=== PATIENT | female | born 1940 | race Caucasian/White ===

== ENCOUNTER 2019-09-08 11:01 | Outpatient (CLI) | payer MEDICARE, SELFPAY ==
[2019-09-08 11:15] VITALS: PULSE 82; O2SAT 87
[2019-09-08 11:20] VITALS: PULSE 86; O2SAT 90
[2019-09-08 11:25] VITALS: PULSE 99; O2SAT 90
[2019-09-08 11:35] VITALS: PULSE 80; O2SAT 91
--- NOTE | 2019-09-08 11:43 | HOMEO2EVAL ---
Home Oxygen Evaluation RC: Home Oxygen (O2) Evaluation Start: 09/08/19 11:36 Freq: Status: Active Protocol: RPE Activity Type Activity Date Activity User E-Sign Co-Sign Detail Recorded Client Recorded Date Recorded By Document 09/08/19 11:15 [email or web address] [id number] 09/08/19 11:43 DJO Document 09/08/19 11:20 [email or web address] [id number] 09/08/19 11:43 DJO Document 09/08/19 11:25 [email or web address] [email or web address] 09/08/19 11:43 DJO Document 09/08/19 11:35 [email or web address] [email or web address] 09/08/19 11:43 DJO 09/08/19 09/08/19 09/08/19 11:15 11:20 11:25 Home O2 Evaluation Test Phase Resting Resting Exercise Oxygen Delivery Room Air Nasal Cannula Nasal Cannula Oxygen Flow Rate (L/min) 1 1 Pulse Oximetry (90-100 %) 87 L 90 90 Pulse Rate (60-100 beats/min) 82 86 99 Activity Tolerance Excellent Ambulation Distance (feet) 500 Treatment Charges O2 Evaluation 09/08/19 11:35 Home O2 Evaluation Test Phase Resting Oxygen Delivery Nasal Cannula Oxygen Flow Rate (L/min) 1 Pulse Oximetry (90-100 %) 91 Pulse Rate (60-100 beats/min) 80 Activity Tolerance Ambulation Distance (feet) Treatment Charges
== END 2019-09-08 11:02 | disposition home or self-care (01) ==
PROVIDERS: PCP Internal Medicine; Visit Provider Nurse Practitioner Family
DX: R09.02 Hypoxemia (principal)
CPT/HCPCS: 94618

== ENCOUNTER → 2020-03-02 11:36 | Outpatient (CLI) | payer MEDICARE, SELFPAY ==
--- NOTE | ~2020-03-02 | XR_ITS ---
XR chest 2V 03/02/2020 12:39 Indication: Shortness of breath Procedure: 2 view chest Comparison: Comparison to multiple prior studies sequentially, with oldest reviewed study dated 03/26. Findings: Heart size normal. There are linear atelectasis/scarring of the lung bases. No edema, focal pneumonia, pleural effusion or pneumothorax. The lungs are hyperinflated which is consistent with, b ut not diagnostic of chronic obstructive pulmonary disease. Impression: 1: Bibasilar atelectasis/scarring. Reviewed, dictated and finalized at location A. Impression: 1: Bibasilar atelectasis/scarring.
== END ==
PROVIDERS: PCP Internal Medicine; Visit Provider Internal Medicine
DX: R06.02 Shortness of breath (principal); R91.8 Other nonspecific abnormal finding of lung field
CPT/HCPCS: 71046

== ENCOUNTER 2020-07-28 12:18 | Outpatient (CLI) | payer MEDICARE, SELFPAY ==
[2020-07-28 12:55] LABS: Basophils Percent Auto 0.5 % (0.2-1.2); Eosinophils Absolute Auto 0.2 K/mm3 (0-0.3); Eosinophils Percent Auto 2.1 % (0-4.4); Hematocrit 45.8 % (37.0-47.0); Hemoglobin 14.7 g/dL (12.0-15.0); Immature Granulocyte Absolute 0.02 K/mm3 (0.00-0.031); Immature Granulocyte Percent A 0.2 % (0-0.5); Lymphocytes Absolute Auto 2.21 K/mm3 (0.9-3.2); Lymphocytes Percent Auto 25.7 % (18.3-44.2); Mean Corpuscular HGB Conc 32.1 g/dl (32-36); Mean Corpuscular Hemoglobin 30.6 pg (26-34); Mean Corpuscular Volume 95.2 fl (80-100); Mean Platelet Volume 11.7 fl (7.4-10.4); Monocytes Absolute Auto 0.7 K/mm3 (0.1-0.6); Neutrophils Absolute Auto 5.5 K/mm3 (1.3-6.7); Neutrophils Percent Auto 63.5 % (45.5-73.1); Platelet Count Result 239 k/mm3 (150-375); Red Blood Count 4.81 M/mm3 (4.2-5.4); Red Cell Distribution Width 13.6 % (11.5-14.5); White Blood Count 8.6 K/mm3 (4.5-10.0)
--- NOTE | 2020-07-28 12:57 | ECG_ITS ---
Measurements Intervals [place] Rate: 71 P: [place]: 0 QRS: -58 QRSD: 138 T: 81 QT: 425 QTc: 463 Interpretive Statements SINUS RHYTHM BORDERLINE AV CONDUCTION DELAY RIGHT BUNDLE BRANCH BLOCK LEFT ANTERIOR FASCICULAR BLOCK ABNORMAL ECG Electronically Signed On 07-28-2020 13:11:50 CENTRAL OFFICE OPERATOR by Ever Shipley D.O.
[2020-07-28 13:03] LABS: Add Urine Microscopic? YES; Appearance Urine Clear (Clear); Bacteria Urine Trace /hpf; Bilirubin Urine Negative (Negative); Blood Urine Negative (Negative); Color Urine Yellow (Yellow); Glucose Urine UA Negative (Negative); Ketones Urine Negative (Negative); Leukocyte Esterase Ur Negative LEU/UL (NEGATIVE); Mucus Urine Heavy /lpf; Nitrate Urine Negative (Negative); Protein Urine 2+ mg/dL (Negative); RBC Urine 0-2 /hpf (0-2); Specific Grav Ur 1.029 (1.001-1.035); Squamous Epithelial Cell Urine Many /hpf (Few); Urobilinogen Urine Negative mg/dL (<2.0); WBC Urine 0-3 /hpf (0-3)
[2020-07-28 13:07] LABS: Alanine Aminotransferase 18 U/L (4-35); Albumin Level 4.4 g/dL (3.5-5.1); Alkaline Phosphatase 94 U/L (38-126); Anion Gap 8 mmol/L (8-16); Aspartate Amino Transferase 28 U/L (14-36); Bilirubin,Total 0.8 mg/dL (0.2-1.3); Blood Urea Nitrogen 20 mg/dL (7-17); Carbon Dioxide 25 mmol/L (22-30); Chloride 109 mmol/L (98-107); Cholesterol 110 mg/dL (0-200); Estimated Glomerular Filt Rate 60; Glucose 101 mg/dL (65-105); HDL Direct 51 mg/dL; Sodium 142 mmol/L (137-145); Triglycerides 115 mg/dL (<150)
[2020-07-28 13:11] LABS: Hemoglobin A1C 5.6 % (<5.7)
[2020-07-28 13:21] LABS: LDL Cholesterol Direct 37 mg/dL
[2020-07-28 13:53] LABS: Creatinine Urine 266.6 mg/dL
[2020-07-28 13:54] LABS: Vitamin D 25 Hydroxy < 12.8 ng/mL
[2020-07-28 14:20] LABS: MALB Creatinine Ratio 120.7 mg/g (0-30); Microalbumin Urine Random 321.9 mg/L (0-16.7)
== END 2020-07-28 12:19 | disposition home or self-care (01) ==
PROVIDERS: PCP Internal Medicine; Visit Provider Internal Medicine
DX: E11.65 Type 2 diabetes mellitus with hyperglycemia (principal); E55.9 Vitamin D deficiency, unspecified; E78.2 Mixed hyperlipidemia; G25.81 Restless legs syndrome; I10 Essential (primary) hypertension; I35.0 Nonrheumatic aortic (valve) stenosis; J44.9 Chronic obstructive pulmonary disease, unspecified; K21.9 Gastro-esophageal reflux disease without esophagitis; R42 Dizziness and giddiness; I45.9 Conduction disorder, unspecified; I45.10 Unspecified right bundle-branch block; I44.4 Left anterior fascicular block
CPT/HCPCS: 36415; 80053; 80061; 81001; 82043; 82306; 82607; 82746; 83036; 84443; 85025; 93005

== ENCOUNTER 2020-08-23 13:39 | Outpatient (CLI) | payer MEDICARE, SELFPAY ==
--- NOTE | 2020-08-23 13:47 | ECHO_ITS ---
Patient Info Name: Nguyen Lunsford Age: 79 years : 1940 Gender: Female Ht: 62 in Wt: 173 lbs BSA: 1.88 m2 Exam Date: 08/23/2020 2:02 PM Exam Location: [facility] Patient Status: Outpatient Admit Date: 08/23/2020 Staff Ordering Physician: Filiberto Ferrari MD Inspector Cold Working: Mariah Warner RDCS Attending Provider: Filiberto Ferrari MD Exam Type: CA echo doppler color flow Study Info Indications I10 - Essential (primary) hypertension Complete two-dimensional, color flow and Doppler transthoracic echocardiogram is performed. Summary 1. Complete two-dimensional, color flow and Doppler transthoracic echocardiogram is performed. 2. Left ventricular chamber dimension is normal. 3. Left ventricular systolic function is normal, estimated at 60-65%. 4. The left ventricular diastolic function is grade I diastolic dysfunction. 5. E/e' 31 is elevated. 6. Left atrial chamber dimension is mildly enlarged. 7. There is moderate aortic valve sclerosis. 8. The mitral valve has moderately calcified annulus. 9. There is mild mitral valve regurgitation. 10. There is trace tricuspid valve regurgitation. 11. No pulmonary hypertension, estimated pulmonary arterial systolic pressure is 39 mmHg. 12. There is trace pulmonic regurgitation. Left Ventricle E/e' 31 is elevated. Left ventricular chamber dimension is normal. Left ventricular systolic function is normal, estimated at 60-65%. The left ventricular diastolic function is grade I diastolic dysfunction. Right Ventricle Right ventricular chamber dimension is normal. Right ventricular systolic function is normal. Left Atria Left atrial chamber dimension is mildly enlarged. Right Atria Right atrial chamber dimension is normal. Aortic Valve The aortic valve is trileaflet. There is moderate aortic valve sclerosis. There is no aortic valve stenosis. There is no aortic valve regurgitation. Pulmonic Valve There is trace pulmonic regurgitation. Mitral Valve The mitral valve has moderately calcified annulus. There is no mitral valve stenosis. There is mild mitral valve regurgitation. Tricuspid Valve There is trace tricuspid valve regurgitation. No pulmonary hypertension, estimated pulmonary arterial systolic pressure is 39 mmHg. Pericardium/Pleural There is no pericardial effusion. Inferior Vena Cava Normal inferior vena cava with >50% collapse upon inspiration consistent with normal right atrial pressure, 5 mmHg. Aorta The aortic root size at the sinus of Valsalva is normal. Left Ventricular Outflow Tract Name Value Normal LVOT 2D LVOT Diameter 1.9 cm LVOT Doppler LVOT Peak Gradient 10 mmHg LVOT Mean Gradient 5 mmHg LVOT VTI 37 cm LVOT VTI/AV VTI Ratio 0.9 LVOT Stroke Volume 109 ml LVOT CO 17.5 l/min LVOT CI 9.3 l/min/m2 Pulmonic Valve Name
== END 2020-08-23 13:40 | disposition home or self-care (01) ==
PROVIDERS: PCP Internal Medicine; Visit Provider Internal Medicine
DX: R06.02 Shortness of breath (principal); I10 Essential (primary) hypertension; I35.0 Nonrheumatic aortic (valve) stenosis; I34.0 Nonrheumatic mitral (valve) insufficiency; I36.1 Nonrheumatic tricuspid (valve) insufficiency
CPT/HCPCS: 93306

== ENCOUNTER 2020-08-27 11:59 | Outpatient (CLI) | payer MEDICARE, SELFPAY ==
--- NOTE | 2020-08-27 12:20 | ECG_ITS ---
Measurements Intervals [place] Rate: 84 P: 125 [place]: 232 QRS: -59 QRSD: 147 T: 76 QT: 427 QTc: 507 Interpretive Statements SINUS RHYTHM WITH FIRST DEGREE AV BLOCK FREQUENT ATRIAL PREMATURE COMPLEXES RIGHT BUNDLE BRANCH BLOCK LEFT ANTERIOR FASCICULAR BLOCK VOLTAGE CRITERIA FOR LVH BASELINE ARTIFACT- I, II, III, AVR, AVL ABNORMAL ECG Electronically Signed On 08-27-2020 12:52:17 MAINTENANCE TECHNICIAN 2ND SHIFT by Ever Shipley D.O.
== END 2020-08-27 12:00 | disposition home or self-care (01) ==
PROVIDERS: PCP Internal Medicine; Visit Provider Internal Medicine
DX: I45.10 Unspecified right bundle-branch block (principal); I44.0 Atrioventricular block, first degree; I44.4 Left anterior fascicular block
CPT/HCPCS: 93005

== ENCOUNTER → 2020-12-03 11:38 | Outpatient (CLI) | payer MEDICARE, SELFPAY ==
--- NOTE | ~2020-12-03 | XR_ITS ---
EXAMINATION: XR chest 2V 12/03/2020 11:54 INDICATION: Dyspnea. Wheezing. Asthma. COPD. PROCEDURE: 2 view chest COMPARISON: Comparison to multiple prior studies sequentially, with oldest reviewed study dated 11/14. FINDINGS: The lungs are clear. There is chronic left basilar atelectasis/scarring. The cardiomediasti nal silhouette is within normal limits. There are no pleural effusions. There is no pneumothorax berg spected. There is atherosclerosis of the aorta. The lungs are hyperinflated which is consistent with , but not diagnostic of chronic obstructive pulmonary disease. IMPRESSION: 1: NO ACUTE CARDIOPULMONARY DISEASE. Reviewed, dictated and finalized at location B.
== END ==
PROVIDERS: PCP Internal Medicine; Visit Provider Internal Medicine
DX: J44.1 Chronic obstructive pulmonary disease with (acute) exacerbation (principal)
CPT/HCPCS: 71046

== ENCOUNTER 2021-09-02 08:05 | Outpatient (CLI) | payer MEDICARE, MEDICAID, SELFPAY ==
[2021-09-02 08:30] VITALS: PULSE 75; O2SAT 97
[2021-09-02 08:35] VITALS: PULSE 111; O2SAT 95
[2021-09-02 08:40] VITALS: PULSE 80; O2SAT 96
--- NOTE | 2021-09-02 16:34 | HOMEO2EVAL ---
Evaluation was performed at [facility] Home Oxygen Evaluation RC: Home Oxygen (O2) Evaluation Start: 09/02/21 16:32 Freq: Status: Active Protocol: RPE Activity Type Activity Date Activity User E-Sign Co-Sign Detail Recorded Client Recorded Date Recorded By Document 09/02/21 08:30 ROXANNE [id number] 09/02/21 16:34 ROXANNE Document 09/02/21 08:35 ROXANNE [id number] 09/02/21 16:34 ROXANNE Document 09/02/21 08:40 ROXANNE [id number] 09/02/21 16:34 ROXANNE 09/02/21 09/02/21 09/02/21 08:30 08:35 08:40 Home O2 Evaluation Test Phase Resting Exercise Resting Oxygen Delivery Room Air Room Air Room Air Pulse Oximetry (90-100 %) 97 95 96 Pulse Rate (60-100 beats/min) 75 111 H 80 Home Oxygen Evaluation Comments NO HOME O2 NEEDED AT THIS TIME Treatment Charges O2 Evaluation - Outpatient
--- NOTE | 2021-09-02 16:34 | PCRCNOTE ---
HOME O2 EVAL FAXED TO OFFICE STAFF
== END 2021-09-02 08:06 | disposition home or self-care (01) ==
PROVIDERS: PCP Internal Medicine; Visit Provider Internal Medicine Critical Care Medicine
DX: R09.02 Hypoxemia (principal)
CPT/HCPCS: 94618

== ENCOUNTER 2022-06-09 14:15 | Outpatient (CLI) | payer MEDICARE, MEDICAID, SELFPAY ==
--- NOTE | ~2022-06-09 | DEXA_ITS ---
Bone Density Report Name: ANITA JACOME Age: 81 Sex: Female Ethnicity: White Date of : 1940 Indication: postmenopausal; screening for osteoporosis; height loss; asthma or emphysema; hysterectomy; rheumatoid arthritis; Referring Provider: PHUC TERRY Study: Bone densitometry was performed. Exam Date: June 09, 2022 Accession number: [id number] Bone Density: Region BMD T-score Z-score Classification Total Forearm (Left) 0.348 -4.3 -1.0 1/3 Forearm (Left) 0.382 -5.2 -1.8 UD Forearm (Left) 0.296 -2.5 -0.1 World Health Organization criteria for BMD impression classify patients as: Normal (T-score at or above -1.0), Osteopenia (T-score between -1.0 and -2.5), or Osteoporosis (T-score at or below -2.5). Clinical Information Provided by Patient: Has rheumatoid arthritis Is being treated for osteoporosis Has used the following medications: Actonel (i.e. risedronate), Calcium Has the following medical conditions: Asthma or Emphysema, Hysterectomy Patient maximum height was 62 Menopause Age: 29 Onset of menses at age 10 Number of children 2 Impression: The patient has osteoporosis, based on the Left Third Radius T-score. Discussion: It is important to ask patients whether they are taking their medications and to encourage continued and appropriate compliance with their osteoporosis therapies to reduce fracture risk. It is also important to review their risk factors and encourage appropriate calcium and vitamin D intakes, exercise, fall prevention and other lifestyle measures. Follow-Up: Consider a repeat BMD and Vertebral Fracture Assessment (VFA) exam in 2 years or sooner if medically necessary, to reassess this patient's status. Reported by: KARIME on 06/09/2022 2:44:00 PM. Reviewed, dictated and finalized at location AJac CACERES
== END 2022-06-09 14:16 | disposition home or self-care (01) ==
LOC: ANHIMG 14:16
PROVIDERS: PCP Internal Medicine; Visit Provider Internal Medicine
DX: M81.0 Age-related osteoporosis without current pathological fracture (principal)
CPT/HCPCS: 77081

== ENCOUNTER 2023-03-24 09:30 | Outpatient (CLI) | payer MEDICARE, MEDICAID, SELFPAY ==
--- NOTE | ~2023-03-24 | MR_ITS ---
EXAMINATION: MRA brain wo con DATE: 03/24/2023 10:36 INDICATION: Transient cerebral ischemic attack, unspecified. TECHNIQUE: Magnetic resonance angiography (MRA) of the brain was performed without intravenous contra st with T1-weighted SPGR by the 3D [id number] technique. Maximum intensity projection 3D-reconstr uctions were obtained. COMPARISON: None. FINDINGS: Left vertebral artery is dominant. There is no significant stenosis of basilar artery or the posterio r cerebral arteries. There is no significant stenosis of the intracranial internal carotid arteries o r anterior or middle cerebral arteries. Anterior communicating artery is normal. There is no aneurysm . IMPRESSION: 1. Normal MRA. Reviewed, dictated and finalized at location E. IMPRESSION: 1. Normal MRA.
== END 2023-03-24 09:31 | disposition home or self-care (01) ==
PROVIDERS: PCP Family Medicine; Visit Provider Nurse Practitioner Family
DX: G45.9 Transient cerebral ischemic attack, unspecified (principal); H54.7 Unspecified visual loss
CPT/HCPCS: 70544

== ENCOUNTER 2023-05-10 07:38 | Outpatient (CLI) | payer MEDICARE, MEDICAID, SELFPAY ==
[2023-05-10 08:00] VITALS: PULSE 90; O2SAT 98
[2023-05-10 08:05] VITALS: PULSE 128; O2SAT 94
[2023-05-10 08:15] VITALS: PULSE 94; O2SAT 98
--- NOTE | 2023-05-10 08:24 | HOMEO2EVAL ---
Evaluation was performed at [facility] Home Oxygen Evaluation RC: Home Oxygen (O2) Evaluation Start: 05/10/23 08:21 Freq: Status: Active Protocol: RPE Activity Type Activity Date Activity User E-sign Co-sign Detail Recorded Client Recorded Date Recorded By Document 05/10/23 08:00 DJO [id number] 05/10/23 08:24 DJO Document 05/10/23 08:05 DJO [id number] 05/10/23 08:24 DJO Document 05/10/23 08:15 [email or web address] [id number] 05/10/23 08:24 DJO 05/10/23 05/10/23 05/10/23 08:00 08:05 08:15 Home O2 Evaluation [Oxygen] -Test Phase Resting Exercise Resting -Oxygen Delivery Room Air Room Air Room Air [Pulse Oximetry] -Pulse Oximetry (90-100 %) 98 94 98 [Pulse Rate] -Pulse Rate (60-100 beats/min) 90 128 H 94 [Evaluation] -Activity Tolerance Good [Exercise] -Ambulation Distance (feet) 500 -Ambulation Distance (meters) 152.39 [Charges] -Treatment Charges O2 Evaluation - Outpatient
== END 2023-05-10 07:39 | disposition home or self-care (01) ==
LOC: ANHPFT 07:39
PROVIDERS: PCP Nurse Practitioner; Visit Provider Physician Assistant
DX: J44.9 Chronic obstructive pulmonary disease, unspecified (principal)
CPT/HCPCS: 94618

== ENCOUNTER 2023-06-06 09:26 | Inpatient (IN) | payer MEDICARE, MEDICAID, SELFPAY ==
[2023-06-06] VITALS (11 sets, daily range): BP systolic 113–164; BP diastolic 52–77; PULSE 59–94; RESP 16–23; TEMP 36.2–37; O2SAT 91–99; BMI 32.0
--- NOTE | ~2023-06-06 | US_ITS ---
EXAMINATION: US venous doppler [facility] DATE: 06/08/2023 14:35 INDICATION: Bilateral lower limb swelling TECHNIQUE: Otto scale images without and with compression and Doppler images of the bilateral lower e xtremity veins were obtained. COMPARISON: 02/20/2008 FINDINGS: The right common femoral vein, profunda femoral vein, femoral vein, popliteal vein, peroneal trunk, p osterior tibial veins, and greater saphenous vein are patent. The left common femoral vein, profunda femoral vein, femoral vein, popliteal vein, peroneal trunk, po sterior tibial veins, and greater saphenous vein are patent. IMPRESSION: 1. Patent bilateral lower extremity veins. No evidence of deep venous thrombosis. Reviewed, dictated and finalized at location B. GER LAW IMPRESSION: 1. Patent bilateral lower extremity veins. No evidence of deep venous thrombosi s.
--- NOTE | ~2023-06-06 | NM_ITS ---
EXAMINATION: NM lung vent and perfusion DATE: 06/06/2023 16:08 INDICATION: Shortness of breath. TECHNIQUE: 7.7 mCi Xenon-133 was administered for ventilation images. 5.2 mCi Tc-99m MAA was administ ered intravenously for perfusion images. Scintigraphic images of the chest were obtained. COMPARISON: Chest 2 views 06/06/2023, CT abdomen and pelvis 06/06/2023 FINDINGS: Single breath ventilation images show moderate sized and large defects in left lower lobe. Washout im ages demonstrate diffuse retention bilaterally. Perfusion images show matched moderate sized and larg e defects in left lower lobe. There are small matched defects in right lower lobe. IMPRESSION: 1. Intermediate probability for pulmonary embolism. Reviewed, dictated and finalized at location A. OMER MANAGER
--- NOTE | ~2023-06-06 | XR_ITS ---
EXAMINATION: XR chest 2V DATE: 06/06/2023 11:31 INDICATION: Shortness of breath TECHNIQUE: PA and lateral views of the chest are obtained. COMPARISON: 12/04/2019 FINDINGS: There are airspace opacities of the left lung base. There is a small left pleural effusion. No pneumothorax is identified. The cardiomediastinal silhouette is normal. There is moderate thoraci c spondylosis. Moderate osteoarthritis is noted in the shoulders. IMPRESSION: 1. Left basilar airspace opacity, consistent with atelectasis versus pneumonia. 2. Small left pleural effusion. Reviewed, dictated and finalized at location B. RETE PIPE PLANT SUPERVISOR
--- NOTE | ~2023-06-06 | US_ITS ---
EXAMINATION: US venous doppler UE DATE: 06/08/2023 14:34 INDICATION: Bilateral TECHNIQUE: Grayscale ultrasound images without and with compression and Doppler ultrasound images of the bilateral upper extremity veins were obtained. COMPARISON: None. FINDINGS: The right internal jugular vein, subclavian vein, axillary vein, brachial veins, basilic vein, cephal ic vein, radial vein, and ulnar vein are patent. The left internal jugular vein, subclavian vein, axillary vein, brachial veins, basilic vein, cephali c vein, radial vein, and ulnar vein are patent. IMPRESSION: 1. No evidence of deep venous thrombosis. Reviewed, dictated and finalized at location B. [facility]
--- NOTE | ~2023-06-06 | CT_ITS ---
Non-contrast CT scan of the Abdomen and Pelvis Clinical indication: Abdominal pain Technique: 2.5 mm axial scans were obtained through the abdomen and pelvis without intravenous or or al contrast. Dose reduction technique was used on this scan by utilizing automated exposure control a nd iterative reconstruction technique. The dose-length product (DLP) was 702.57 mGy-cm. Findings: Images through the lung bases reveal minimal left pleural fluid, with probable bibasilar a telectasis or scarring. There is cortical scarring in the right kidney. Possible small right renal stone versus vascular calc ification. No ureteral stone or hydronephrosis on either side. No left renal stone. The liver, spleen, pancreas, and adrenals appear normal. Cholecystectomy clips are present. There are atherosclerotic calcifications of the aorta. There is no evidence of bowel obstruction. Moderate fat-containing umbilical hernia present. Images through the pelvis are degraded by streak artifact from bilateral hip arthroplasty. There is n o evidence of ascites or lymphadenopathy. Urinary bladder grossly unremarkable. No definite pelvic ma ss seen. Impression: Moderate fat-containing umbilical hernia. Possible small nonobstructing ureteral stone versus vascular calcification. Minimal left pleural effusion with bibasilar scarring or atelectasis. Reviewed, dictated and finalized at [facility]. COMMUNICATIONS ADMINISTRATOR Impression: Moderate fat-containing umbilical hernia. Possible small nonobstructing ureteral stone versus vascular calcification. Minimal left pleural effusion with bibasilar scarring or atelectasis.
--- NOTE | 2023-06-06 09:54 | ECG_ITS ---
Measurements Intervals [place] Rate: 115 P: [place]: 0 QRS: -50 QRSD: 119 T: 68 QT: 320 QTc: 444 Interpretive Statements ATRIAL FIBRILLATION WITH RAPID VENTRICULAR RESPONSE WITH ABERRANT CONDUCTION OR VENTRICULAR PREMATURE COMPLEXES PATTERN CONSISTENT WITH PULMONARY DISEASE RIGHT BUNDLE BRANCH BLOCK [120+ ms QRS DURATION, UPRIGHT V1, 40+ ms S IN I/aVL/V4/V5/V6] VOLTAGE CRITERIA FOR LVH [MEETS CRITERIA IN ONE OF: R(aVL), S(V1), R(V5), R(V5/V6)+S(V1)] INFERIOR MYOCARDIAL INFARCTION , PROBABLY OLD [40+ ms Q WAVE AND/OR ST/T ABNORMALITY IN II/aVF] ARTIFACT LIMITS INTERPRETATION ABNORMAL ECG COMPARED TO ECG 08/27/2020 12:35:14 ATRIAL FIBRILLATION NOW PRESENT ABERRANT CONDUCTION OF SUPRAVENTRICULAR BEAT(S) NOW PRESENT MYOCARDIAL INFARCT FINDING NOW PRESENT Electronically Signed On 06-06-2023 10:41:32 OFFSET PLATE PREPARATION SUPERVISOR by Kushal Little M.D.
--- NOTE | 2023-06-06 10:19 | ED.ABDPAIN ---
HPI - Abdominal Pain General Chief Complaint: Abdominal Pain <ZANE Ortiz Last Filed: 06/06/23 12:33> Stated Complaint: ABD PAIN <ZANE Ortiz Last Filed: 06/06/23 12:33> Time Seen by Provider: 06/06/23 09:37 <ZANE Ortiz Last Filed: 06/06/23 12:33> Source: patient <ZANE Ortiz Last Filed: 06/06/23 12:33> Mode of arrival: ambulatory <ZANE Ortiz Last Filed: 06/06/23 12:33> Limitations: no limitations <ZANE Ortiz Last Filed: 06/06/23 12:33> History of Present Illness HPI narrative: This is a 82 year old female that presents to the ER for left sided abdominal pain. Reports radiation to her back. Pain is worse with movement and relieved with rest. She has not taken any pain medication today. Reports associated nausea. Reports shortness of breath, but took her inhaler with relief. Denies fever, chest pain, vomiting, hematuria or dysuria. <ZANE Ortiz Last Filed: 06/06/23 12:33> Related Data Home Medications: Home Medications Medication Instructions Recorded Confirmed hydrocodone 5 mg-acetaminophen 325 1 tablet PO Q8H PRN Pain 05/20/19 06/06/23 mg tablet diltiazem HCl 120 mg 120 mg PO ONCE 09/22/22 06/06/23 capsule,extended release 12 hr <ZANE Ortiz Last Filed: 06/06/23 12:33> Allergies/Adverse Reactions: Allergies Allergy/AdvReac Type Severity Reaction Status Date / Time iodine Allergy Severe SYNCOPE Verified 05/02/23 10:13 lisinopril Allergy Severe Anaphylactic Verified 05/02/23 10:13 Shock JOHANA Inhibitors Allergy Mild Hives Verified 05/02/23 10:13 moxifloxacin Allergy Mild Hives Verified 06/06/23 10:26 Contrast Media Allergy Mild Syncope Uncoded 03/12/23 10:04 <ZANE Ortiz Last Filed: 06/06/23 12:33> Review of Systems Review of Systems: CONSTITUTIONAL: Denies fever CARDIOVASCULAR: Denies chest pain, or edema. RESPIRATORY: Reports dyspnea. Denies cough GASTROINTESTINAL: Reports abdominal pain, nausea. Denies vomiting, or diarrhea. GENITOURINARY: Denies dysuria or hematuria. <Aliya Singleton PA-C - Last Filed: 06/06/23 12:33> All systems reviewed & are unremarkable except as noted in HPI and below <Aliya Singleton PA-C - Last Filed: 06/06/23 12:33> [facility] Past Medical History Medical History: Medical History (Updated 06/06/23 @ 12:26 by Aliya Singleton PA-C) Aortic valve stenosis Cataract Chronic obstructive pulmonary disease Chronic pain syndrome ABREU (dyspnea on exertion) Dyslipidemia Essential hypertension Exercise hypoxemia GERD (gastroesophageal reflux disease) Hyperlipidemia, unspecified Osteoarthritis involving multiple joints on both sides of body Restless leg (03/10/19) Rheumatoid arthritis Type 2 diabetes mellitus with hyperglycemia <Aliya Singleton PA-C - Last Filed: 06/06/23 12:33> Surgical History Surgical History: Surgical History History of cholecystectomy History of hip replacement <Aliya Singleton PA-C - Last Filed: 06/06/23 12:33> Family History Family History: Family History Mother Carcinoma of colon Family history of malignant neoplasm of bone Family history of lymphoma Patient's mother is in good health Family history of rheumatoid arthritis Other Diabetes mellitus Family history of cardiovascular disease Family history of malignant neoplasm Family history of malignant neoplasm of gastrointestinal tract <Aliya Singleton PA-C - Last Filed: 06/06/23 12:33> Social History Social History: Social History Smoking status: Never smoker Second hand tobacco smoke exposure: Yes Alcohol intake: never Substance use: never Substance use type: does not use Lack of Transportation: No Lack of Food: Never Jim
[2023-06-06 10:20] LABS: Basophils Absolute Auto 0.1 K/mm3 (0.0-0.1); Basophils Percent Auto 0.4 % (0.2-1.2); Eosinophils Absolute Auto 0.1 K/mm3 (0-0.3); Eosinophils Percent Auto 0.5 % (0-4.4); Hematocrit 42.2 % (37.0-47.0); Hemoglobin 13.3 g/dL (12.0-15.0); Immature Granulocyte Absolute 0.02 K/mm3 (0.00-0.031); Immature Granulocyte Percent A 0.2 % (0-0.5); Lymphocytes Absolute Auto 2.47 K/mm3 (0.9-3.2); Lymphocytes Percent Auto 20.9 % (18.3-44.2); Mean Corpuscular HGB Conc 31.5 g/dl (32-36); Mean Corpuscular Hemoglobin 30.2 pg (26-34); Mean Corpuscular Volume 95.9 fl (80-100); Monocytes Absolute Auto 1.1 K/mm3 (0.1-0.6); Monocytes Percent Auto 9.4 % (2.6-8.5); Neutrophils Absolute Auto 8.1 K/mm3 (1.3-6.7); Neutrophils Percent Auto 68.6 % (45.5-73.1); Platelet Count Result 305 k/mm3 (150-375); Red Cell Distribution Width 14.6 % (11.5-14.5); White Blood Count 11.8 K/mm3 (4.5-10.0)
[2023-06-06] MEDS: ONDANSETRON INJ 4 MG/2 ML VIAL IV PUSH (10:30)
[2023-06-06] MEDS: MORPHINE SULFATE (*CRX) 4 MG/ML INJ IV PUSH (10:30)
[2023-06-06 10:53] LABS: Alanine Aminotransferase 16 U/L (6-35); Alkaline Phosphatase 74 U/L (38-126); Anion Gap 9 mmol/L (8-16); Aspartate Amino Transferase 28 U/L (14-36); Bilirubin,Total 1.4 mg/dL (0.2-1.3); Blood Urea Nitrogen 14 mg/dL (7-17); Calcium 8.8 mg/dL (8.4-10.2); Carbon Dioxide 26 mmol/L (22-30); Chloride 104 mmol/L (98-107); Estimated CRCL calculation 45 ml/min; Estimated Glomerular Filt Rate > 60; Glucose 116 mg/dL (65-110); Lipase 55 U/L (23-300); Potassium 3.8 mmol/L (3.4-5.0); Sodium 139 mmol/L (137-145)
[2023-06-06] MEDS: dilTIAZem HCL CD 120 MG CAP.24HR PO (10:55)
[2023-06-06 11:04] LABS: Troponin I < 0.012 ng/mL (0.000-0.034)
[2023-06-06 11:35] LABS: NT Pro B Type Natriuretic Pept 1750 pg/mL (19.9-100)
[2023-06-06 12:14] LABS: Appearance Urine Cloudy (Clear); Bacteria Urine None Seen /hpf; Bilirubin Urine 2+ (Negative); Blood Urine Negative (Negative); Color Urine Dark Yellow (Yellow); Glucose Urine UA Negative (Negative); Ketones Urine Trace mg/dL (Negative); Leukocyte Esterase Ur Trace LEU/UL (Negative); Mucus Urine Present /lpf; Need Manual Microscopic Reviewed; Nitrate Urine Negative (Negative); Protein Urine 3+ mg/dL (Negative); RBC Urine 0-2 /hpf (0-2); Squamous Epithelial Cell Urine Few /hpf (Few); WBC Urine 0-5 /hpf
[2023-06-06 12:19] LABS: Add Urine Microscopic? YES
--- NOTE | 2023-06-06 12:21 | ECG_ITS ---
Measurements Intervals [place] Rate: 116 P: [place]: 0 QRS: -54 QRSD: 145 T: 97 QT: 321 QTc: 448 Interpretive Statements ATRIAL FIBRILLATION WITH RAPID VENTRICULAR RESPONSE RIGHT BUNDLE BRANCH BLOCK [120+ ms QRS DURATION, UPRIGHT V1, 40+ ms S IN I/aVL/V4/V5/V6] LEFT ANTERIOR FASCICULAR BLOCK [QRS AXIS <= -45, QR IN I, RS IN II] VOLTAGE CRITERIA FOR LVH [MEETS CRITERIA IN ONE OF: R(aVL), S(V1), R(V5), R(V5/V6)+S(V1)] POSSIBLE SEPTAL MYOCARDIAL INFARCTION , OF INDETERMINATE AGE [30 ms Q WAVE IN V1/V2] MODERATE T-WAVE ABNORMALITY, CONSIDER LATERAL ISCHEMIA [-0.1+ mV T WAVE IN I/aVL/V5/V6] ABNORMAL ECG COMPARED TO ECG 06/06/2023 09:58:07 LEFT ANTERIOR FASCICULAR BLOCK NOW PRESENT Electronically Signed On 06-06-2023 16:17:39 OPTIMIZATION ANALYST by Kushal Little M.D.
--- NOTE | 2023-06-06 12:36 | ECG_ITS ---
Measurements Intervals [place] Rate: 78 P: 14 [place]: 194 QRS: -52 QRSD: 138 T: 65 QT: 420 QTc: 480 Interpretive Statements SINUS RHYTHM WITH OCCASIONAL SUPRAVENTRICULAR PREMATURE COMPLEXES POSSIBLE LEFT ATRIAL ENLARGEMENT [-0.1mV P WAVE IN V1/V2] RIGHT BUNDLE BRANCH BLOCK [120+ ms QRS DURATION, UPRIGHT V1, 40+ ms S IN I/aVL/V4/V5/V6] LEFT ANTERIOR FASCICULAR BLOCK [QRS AXIS <= -45, QR IN I, RS IN II] POSSIBLE LEFT VENTRICULAR HYPERTROPHY [VOLTAGE CRITERIA PLUS LAE OR QRS WIDENING] POSSIBLE SEPTAL MYOCARDIAL INFARCTION , PROBABLY OLD [30 ms Q WAVE IN V1/V2] ABNORMAL ECG COMPARED TO ECG 06/06/2023 10:02:43 SINUS RHYTHM NOW PRESENT Electronically Signed On 06-06-2023 16:18:59 FINANCE PROFESSIONAL by Kushal Little M.D.
[2023-06-06] MEDS: HYDROcodone/acetaminophen (*CRX) 5-325 MG TABLET 1 TAB PO (13:05)
[2023-06-06] MEDS: AZITHROMYCIN 500 MG/NS 250 ML 500 MG/250 ML BAG 250 MG IVPB (13:07)
[2023-06-06 13:18] LABS: D Dimer 3.28 ug/mL (<0.48)
[2023-06-06 13:28] LABS: Influenza A QL RT-PCR Negative (Negative); Influenza B QL RT-PCR Negative (Negative); SARS-CoV-2 RNA PCR Negative (Negative)
[2023-06-06 14:05] LABS: Troponin I 0.013 ng/mL (0.000-0.034)
--- NOTE | 2023-06-06 15:30 | ADMGEN ---
This patient, Nguyen Lunsford, was admitted to [facility] Surg Room 312-01. Patient/family oriented to hospital policies and general routines including ID bracelet, bed and alarms, visiting hours, pain management, procedures, bathroom and other care routines, personal items, smoking policy, room service/diet, and visiting hours. Information on how to activate the Rapid Response Team has been discussed. Patient/Family are encouraged to report perceived risks to care and to ask questions if they do not understand what they are told or what they should do.
--- NOTE | 2023-06-06 15:40 | PC.NURSE ---
report from Timur PARIKH in the ER at 1430, patient arrived at 1500 to 312 by wheelchair. denies pain, is stable, admission complete.
[2023-06-06] MEDS: MORPHINE SULFATE (*CRX) 2 MG/ML INJ IV PUSH (18:20)
--- NOTE | 2023-06-06 20:07 | PM.IMHP ---
H&P: HPI History of Present Illness Date/Time: 06/06/23 20:07 Chief Complaint: Abdominal Pain, N/V Narrative: 82 y/o F presents here with abdominal pain and N/V with PMH of take, aortic valve stenosis, COPD, dyslipidemia, HTN, GERD, osteoarthritis, RLS, and DM2. Patient reports diffuse abdominal pain and nausea vomiting that started on Sunday. States the abdominal pain is currently suprapubic radiating into her left flank and groin area. No associated diarrhea, palpitations, chest pain, diaphoresis, fever, or chills. Currently feels flushed and mildly short of breath. Describes her shortness of breath as similar to her previous asthma exacerbations and has chronically worsened with exertion, states she can hear herself wheeze occasionally. Also reports frequent N/V r/t to her hiatal hernia, takes Zofran for this at home. ED workup revealed mild elevation in white count at 11.8, elevated D-dimer at 3.28, BNP 1750, UA equivocal. CXR showed left basilar opacity, consistent with atelectasis versus pneumonia and a small left pleural effusion. CT of abdomen pelvis showed moderate fat containing umbilical hernia, possible small nonobstructing ureteral stone versus vascular calcification of the right side. No ureteral stone or hydronephrosis bilaterally. As well as minimal left pleural effusion with bibasilar scarring or atelectasis. No pneumonia to lung bases. EKG showed new AFib RVR. Given PO diltiazem with resolution of Afib RVR. Review of Systems Review of Systems: All systems reviewed & are unremarkable except as noted in HPI and below PMFSH Past Medical History Medical History Aortic valve stenosis Cataract Chronic obstructive pulmonary disease Chronic pain syndrome ABREU (dyspnea on exertion) Dyslipidemia Essential hypertension Exercise hypoxemia GERD (gastroesophageal reflux disease) Hyperlipidemia, unspecified Kidney stones Osteoarthritis involving multiple joints on both sides of body Restless leg (03/10/19) Rheumatoid arthritis Type 2 diabetes mellitus with hyperglycemia Surgical History Surgical History History of cholecystectomy History of hip replacement Family History Family History Mother Carcinoma of colon Family history of malignant neoplasm of bone Family history of lymphoma Patient's mother is in good health Family history of rheumatoid arthritis Other Diabetes mellitus Family history of cardiovascular disease Family history of malignant neoplasm Family history of malignant neoplasm of gastrointestinal tract Social History Social History Smoking status: Never smoker Second hand tobacco smoke exposure: Yes Alcohol intake: never Substance use: never Substance use type: does not use Lack of Transportation: No Lack of Food: Never True Current Housing: I Have Housing Concerned About Future Housing: No Difficulty Paying Gas/Electric Bills: No Difficulty Paying for Meds: No Currently Unemployed: No Education: High School Diploma/GED Difficulty w/ Childcare or Family Care: No Spiritual care concerns: No Meds Home Medications and Allergies Home Medications Medication Instructions Recorded Confirmed Type hydrocodone 5 mg-acetaminophen 325 1 tablet PO Q8H PRN Pain 05/20/19 06/06/23 History mg tablet arformoterol 15 mcg/2 mL solution 2 ml inhalation BID #120 mL 08/16/21 06/06/23 Rx for nebulization (Brovana) budesonide 0.5 mg/2 mL suspension 0.5 mg (2 mL) inhalation BID #120 08/16/21 06/06/23 Rx for nebulization mL ipratropium bromide 0.02 % 2.5 ml inhalation QID PRN 08/16/21 06/06/23 Rx solution for inhalation shortness of breath or wheezing #300 mL pantoprazole 40 mg tablet,delayed See Rx Instructions .Route 06/22/22
[2023-06-06] MEDS: fentaNYL CITRATE INJ (*CRX) 100 MCG/2 ML VIAL 25 MCG IV PUSH (20:49)
[2023-06-06 21:19] LABS: Glucose Point of Care 121 mg/dl (65-105)
[2023-06-07] VITALS (21 sets, daily range): BP systolic 132–140; BP diastolic 55–88; PULSE 65–106; RESP 14–20; TEMP 35.9–36.6; O2SAT 91–95
--- NOTE | 2023-06-07 | ECHO_ITS ---
Patient Info Name: Nguyen Lunsford Age: 82 years : 1940 Gender: Female Ht: 62 in Wt: 175 lbs BSA: 1.90 m2 HR: 86 bpm BP: 137 / 55 mmHg Heart Rhythm: Sinus Rhythm Technical Quality: Good Exam Date: 06/07/2023 9:48 AM Exam Location: Echo Lab Patient Status: Outpatient Admit Date: 06/06/2023 Staff Ordering Physician: Ana Smiley APRN Family Worker: Gordo Castañeda RDCS Attending Provider: Crystal Burrell Referring Physician: Baljit CEDEÑO; Exam Type: CA echo doppler color flow Study Info Indications - new a fib Complete two-dimensional, color flow and Doppler transthoracic echocardiogram is performed. Summary 1. Complete two-dimensional, color flow and Doppler transthoracic echocardiogram is performed. 2. Left ventricular chamber dimension is normal. 3. Left ventricular systolic function is normal, estimated at 65-70%. 4. There is mildly increased left ventricular wall thickness. 5. The left ventricular diastolic function is grade I diastolic dysfunction. 6. Left atrial chamber dimension is severely enlarged. 7. There is mild aortic valve stenosis with a peak velocity of 216 cm/s, mean gradient of 11 mmHg, and aortic valve area of 1.6 cm2. Left coronary cusp has diminished mobility. 8. There is mild aortic valve calcification. 9. There is mild mitral valve regurgitation. 10. The mitral valve annulus is severely calcified. 11. There is mild tricuspid valve regurgitation. 12. Moderate pulmonary hypertension, estimated pulmonary arterial systolic pressure is 50 mmHg. 13. There is mild pulmonic regurgitation. Left Ventricle Left ventricular chamber dimension is normal. Left ventricular systolic function is normal, estimated at 65-70%. There is mildly increased left ventricular wall thickness. The left ventricular diastolic function is grade I diastolic dysfunction. Right Ventricle Right ventricular chamber dimension is normal. Right ventricular systolic function is normal. Left Atria Left atrial chamber dimension is severely enlarged. Right Atria Right atrial chamber dimension is normal. Atrial Septum Intact interatrial septum visualized by color flow imaging. Aortic Valve There is mild aortic valve stenosis with a peak velocity of 216 cm/s, mean gradient of 11 mmHg, and aortic valve area of 1.6 cm2. Left coronary cusp has diminished mobility. The aortic valve is trileaflet. There is trace aortic valve regurgitation. There is mild aortic valve calcification. Pulmonic Valve The pulmonic valve is normal. There is no pulmonic valve stenosis. There is mild pulmonic regurgitation. Mitral Valve There is no mitral valve stenosis. There is mild mitral valve regurgitation. The mitral valve annulus is severely calcified. Tricuspid Valve The tricuspid valve leaflets are normal. There is no significant tricuspid valve stenosis. There is mild tricuspid valve regurgitation. Moderate pulmonary hypertension, estimated pulmonary arterial systolic pressure is 50 mmHg. Pericardium/Pleural The pericardium appears epicardial fat pad. There is trivial pericardial effusion. Inferior Vena Cava Normal inferior vena cava with >50% collapse upon inspiration consistent with normal right atrial pressure, 10 mmHg. Aorta The aortic root size at the sinus of Valsalva is normal. Left Ventricular Outflow Tract Name Value Normal LVOT 2D
[2023-06-07] MEDS: fentaNYL CITRATE INJ (*CRX) 100 MCG/2 ML VIAL 25 MCG IV PUSH ×2 (00:36→05:57)
[2023-06-07] MEDS: dilTIAZem HCl INJ 25 MG/5 ML VIAL 20 MG IV PUSH (00:39)
[2023-06-07] MEDS: ALBUTEROL SULFATE NEB 2.5 MG/3 ML INH INHALATION ×6 (00:42→19:31)
[2023-06-07] MEDS: BUDESONIDE RESPULE NEB 0.5 MG/2 ML AMP INHALATION ×2 (07:00→19:31)
[2023-06-07 07:44] LABS: Alanine Aminotransferase 14 U/L (6-35); Alkaline Phosphatase 75 U/L (38-126); Anion Gap 10 mmol/L (8-16); Aspartate Amino Transferase 28 U/L (14-36); Bilirubin,Total 1.4 mg/dL (0.2-1.3); Blood Urea Nitrogen 12 mg/dL (7-17); Calcium 8.2 mg/dL (8.4-10.2); Carbon Dioxide 23 mmol/L (22-30); Chloride 101 mmol/L (98-107); Estimated CRCL calculation 41 ml/min; Estimated Glomerular Filt Rate 60; Glucose 104 mg/dL (65-110); Phosphorus 2.9 mg/dL (2.5-4.5); Potassium 3.7 mmol/L (3.4-5.0); Sodium 134 mmol/L (137-145)
[2023-06-07 07:52] LABS: Basophils Absolute Auto 0.1 K/mm3 (0.0-0.1); Basophils Percent Auto 0.5 % (0.2-1.2); Eosinophils Absolute Auto 0.1 K/mm3 (0-0.3); Eosinophils Percent Auto 1.4 % (0-4.4); Hematocrit 40.4 % (37.0-47.0); Immature Granulocyte Absolute 0.03 K/mm3 (0.00-0.031); Immature Granulocyte Percent A 0.3 % (0-0.5); Lymphocytes Absolute Auto 2.47 K/mm3 (0.9-3.2); Lymphocytes Percent Auto 24.8 % (18.3-44.2); Mean Corpuscular HGB Conc 32.2 g/dl (32-36); Mean Corpuscular Hemoglobin 30.4 pg (26-34); Mean Corpuscular Volume 94.4 fl (80-100); Mean Platelet Volume 11.3 fl (7.4-10.4); Monocytes Percent Auto 10.3 % (2.6-8.5); Neutrophils Absolute Auto 6.2 K/mm3 (1.3-6.7); Neutrophils Percent Auto 62.7 % (45.5-73.1); Platelet Count Result 308 k/mm3 (150-375); Red Blood Count 4.28 M/mm3 (4.2-5.4); Red Cell Distribution Width 14.3 % (11.5-14.5)
[2023-06-07] MEDS: HYDROcodone/acetaminophen (*CRX) 5-325 MG TABLET 1 TAB PO ×2 (09:30→17:43)
[2023-06-07] MEDS: PANTOPRAZOLE 40 MG TABLET PO (09:30)
[2023-06-07] MEDS: rOPINIRole HCL 1 MG TABLET 2 MG PO ×2 (09:30→17:43)
[2023-06-07] MEDS: ASPIRIN 81 MG ENTERIC TABLET PO (09:31)
[2023-06-07] MEDS: CLOPIDOGREL BISULFATE 75 MG TABLET PO (09:31)
[2023-06-07] MEDS: ROSUVASTATIN 10 MG TABLET 20 MG PO (09:31)
[2023-06-07] MEDS: ENOXAPARIN 80 MG/0.8 ML SYRINGE SUB-Q ×2 (09:32→20:16)
[2023-06-07] MEDS: dilTIAZem HCL CD 120 MG CAP.24HR PO (09:32)
--- NOTE | 2023-06-07 10:42 | PM.CNCAR ---
Assessment and Plan Assessment and plan (1) Atrial fibrillation with RVR: Code(s): I48.91 - Unspecified atrial fibrillation Status: Acute Assessment and Plan: This is a new diagnosis. Chronicity is unknown. Will pursue rate control for now. Will increase Diltiazem to 240mg daily as she has intermittent RVR with rates in the 140's She has a CHADs2 Vasc score of at least 4, so anticoagulation is indicated. Shes on therapeutic dose lovenox, but this can be shifted to a DOAC. Echo is pending Outpatient follow up with Dr. Shipley (2) Hyperlipidemia, unspecified: Qualifiers: Hyperlipidemia type: mixed hyperlipidemia Qualified Code(s): E78.2 - Mixed hyperlipidemia Code(s): E78.5 - Hyperlipidemia, unspecified Status: Acute Assessment and Plan: Continue statin (3) Essential hypertension: Code(s): I10 - Essential (primary) hypertension Status: Acute Assessment and Plan: Blood pressure generally at goal. History of Present Illness History of Present Illness Consult date/time: 06/07/23 10:42 Requesting physician: Crystal Burrell APN-C Consult reason: atrial fibrillation Reason For Visit: atrial fibrillation with rapid ventricular respons Narrative: Nguyen Lunsford is an 82 year old female with past medical history of COPD, dyslipidemia, hypertension, aortic valve stenosis. She is hospitalized because of abdominal pain. This is a patient who has been seen in the past by Dr. Shipley. During her workup she was noted to be in atrial fibrillation with rapid ventricular response. She was given her home dose of diltiazem and spontaneously converted to sinus rhythm. On telemetry, she does have intermittent atrial fibrillation with rapid ventricular response but is predominantly in sinus rhythm. She denies feeling any palpitations, chest pain, shortness of breath. Currently, she remains in atrial fibrillation but her heart rate is controlled. She does not have any complaints at the time of my visit with her. Review of Systems Review of Systems: All systems reviewed & are unremarkable except as noted in HPI and below PMFSH Past Medical History Medical History Aortic valve stenosis Cataract Chronic obstructive pulmonary disease Chronic pain syndrome ABREU (dyspnea on exertion) Dyslipidemia Essential hypertension Exercise hypoxemia GERD (gastroesophageal reflux disease) Hyperlipidemia, unspecified Kidney stones Osteoarthritis involving multiple joints on both sides of body Restless leg (03/10/19) Rheumatoid arthritis Type 2 diabetes mellitus with hyperglycemia Surgical History Surgical History History of cholecystectomy History of hip replacement Family History Family History Mother Carcinoma of colon Family history of malignant neoplasm of bone Family history of lymphoma Patient's mother is in good health Family history of rheumatoid arthritis Other Diabetes mellitus Family history of cardiovascular disease Family history of malignant neoplasm Family history of malignant neoplasm of gastrointestinal tract Social History Social History Smoking status: Never smoker Second hand tobacco smoke exposure: Yes Alcohol intake: never Substance use: never Substance use type: does not use Lack of Transportation: No Lack of Food: Never True Current Housing: I Have Housing Concerned About Future Housing: No Difficulty Paying Gas/Electric Bills: No Difficulty Paying for Meds: No Currently Unemployed: No Education: High School Diploma/GED Difficulty w/ Childcare or Family Care: No Spiritual care concerns: No Meds Home Medications and Allergies Home Medications Medication Instructions Recorded
--- NOTE | 2023-06-07 11:24 | P.PNIM_ITS ---
Progress Note: A&P Assessment and Plan (1) Lower abdominal pain: Code(s): R10.30 - Lower abdominal pain, unspecified Status: Acute Assessment and Plan: * CT without evidence of obstructing stones. * Pt. still with some pain today, but endorses since increasing the dose of pain meds, it is better. * Continue pain meds prn * Monitor labs and VS. * Net Output is -490. * Rates pain at a 7-8/10. (2) Atrial fibrillation with RVR: Code(s): I48.91 - Unspecified atrial fibrillation Status: Acute Assessment and Plan: * Rhythm converted with oral Diltiazem. Remains on maintenance * Continue Telemetry * ECHO today * Cardiology Consult, appreciate recommendations for follow up and management (3) Elevated d-dimer: Code(s): R79.89 - Other specified abnormal findings of blood chemistry Status: Acute Assessment and Plan: * Perfusion scan significant for a moderate risk of PE. * Lovenox changed to therapeutic dosing BID * Monitor for respiratory distress/changes * CTA PE protocol has been avoided given pt's hx of allergies to contrast and iodine. * There is a possibility that the dimer was elevated due to the development of A-fib or her current PNA. * Consider re-evalaution (4) Pneumonia: Qualifiers: Laterality: left Lung location: lower lobe of lung Pneumonia type: due to unspecified organism Qualified Code(s): J18.9 - Pneumonia, unspecified organism Code(s): J18.9 - Pneumonia, unspecified organism Status: Acute Assessment and Plan: * Continue Rocephin. * Azithromycin held in the setting of new A-fib * Monitor labs and VS * Pt. does not meet Sepsis criteria. (5) Difficulty urinating: Code(s): R39.198 - Other difficulties with micturition Status: Resolved Assessment and Plan: Resolved (6) Asthma-COPD overlap syndrome: Code(s): J44.9 - Chronic obstructive pulmonary disease, unspecified Status: Chronic Assessment and Plan: * Continue Albuterol, Budesonide and Ipratropium. * Monitor oxygenation with VS. (7) Type 2 diabetes mellitus with hyperglycemia: Qualifiers: Diabetes mellitus buttermaker continuous churn insulin use: without residential use Qualified Code(s): E11.65 - Type 2 diabetes mellitus with hyperglycemia Code(s): E11.65 - Type 2 diabetes mellitus with hyperglycemia Status: Chronic Assessment and Plan: * Hx of being very well controlled. A1c 5.7 in 08/2022. * Repeat A1C here today * Initiate SSI with accu checks and hypoglycemic protocol. * Glucose checks AC and HS * Hypoglycemic protocol * SSI Low dose Novolog Time Spent With Patient Time with patient: 15 - 25 minutes Subjective Date/time seen: 06/07/23 3846 Interval history: This very pleasant 82 year old female pt is examined at the bedside in interval assessment today after being admitted to the hospital overnight with a vague abdominal pain on the left side, new onset A-fib RVR, PNA and and elevated D- dimer. She had a Perfusion scan that demonstrated a moderate likelihood of PE. Therefore, her Lovenox was changed to therapeutic dosing today BID. She had increased dose of pain meds to help with her abdominal pain and CT did not show evidence of any obstructing stones. She reportedly is urinating without any pain or discomfort now. Her Fib RVR was controlled with Cardizem in the ER and she is now in NSR, however, Cardiology will be consulted for further management and follow up. She is still receiving Azithromycin and Rocephin for the found concern of LLL PNA. Overall t
--- NOTE | 2023-06-07 11:24 | PM.IMPN ---
Progress Note: A&P Assessment and Plan (1) Lower abdominal pain: Code(s): R10.30 - Lower abdominal pain, unspecified Status: Acute Assessment and Plan: CT without evidence of obstructing stones. Pt. still with some pain today, but endorses since increasing the dose of pain meds, it is better. Continue pain meds prn Monitor labs and VS. Net Output is -490. Rates pain at a 7-8/10. (2) Atrial fibrillation with RVR: Code(s): I48.91 - Unspecified atrial fibrillation Status: Acute Assessment and Plan: Rhythm converted with oral Diltiazem. Remains on maintenance Continue Telemetry ECHO today Cardiology Consult, appreciate recommendations for follow up and management (3) Elevated d-dimer: Code(s): R79.89 - Other specified abnormal findings of blood chemistry Status: Acute Assessment and Plan: Perfusion scan significant for a moderate risk of PE. Lovenox changed to therapeutic dosing BID Monitor for respiratory distress/changes CTA PE protocol has been avoided given pt's hx of allergies to contrast and iodine. There is a possibility that the dimer was elevated due to the development of A-fib or her current PNA. Consider re-evalaution (4) Pneumonia: Qualifiers: Laterality: left Lung location: lower lobe of lung Pneumonia type: due to unspecified organism Qualified Code(s): J18.9 - Pneumonia, unspecified organism Code(s): J18.9 - Pneumonia, unspecified organism Status: Acute Assessment and Plan: Continue Rocephin. Azithromycin held in the setting of new A-fib Monitor labs and VS Pt. does not meet Sepsis criteria. (5) Difficulty urinating: Code(s): R39.198 - Other difficulties with micturition Status: Resolved Assessment and Plan: Resolved (6) Asthma-COPD overlap syndrome: Code(s): J44.9 - Chronic obstructive pulmonary disease, unspecified Status: Chronic Assessment and Plan: Continue Albuterol, Budesonide and Ipratropium. Monitor oxygenation with VS. (7) Type 2 diabetes mellitus with hyperglycemia: Qualifiers: Diabetes mellitus terminal operations supervisor insulin use: without terminal operations supervisor use Qualified Code(s): E11.65 - Type 2 diabetes mellitus with hyperglycemia Code(s): E11.65 - Type 2 diabetes mellitus with hyperglycemia Status: Chronic Assessment and Plan: Hx of being very well controlled. A1c 5.7 in 08/2022. Repeat A1C here today Initiate SSI with accu checks and hypoglycemic protocol. Glucose checks AC and HS Hypoglycemic protocol SSI Low dose Novolog Time Spent With Patient Time with patient: 15 - 25 minutes Subjective Date/time seen: 06/07/23 0975 Interval history: This very pleasant 82 year old female pt is examined at the bedside in interval assessment today after being admitted to the hospital overnight with a vague abdominal pain on the left side, new onset A-fib RVR, PNA and and elevated D-dimer. She had a Perfusion scan that demonstrated a moderate likelihood of PE. Therefore, her Lovenox was changed to therapeutic dosing today BID. She had increased dose of pain meds to help with her abdominal pain and CT did not show evidence of any obstructing stones. She reportedly is urinating without any pain or discomfort now. Her Fib RVR was controlled with Cardizem in the ER and she is now in NSR, however, Cardiology will be consulted for further management and follow up. She is still receiving Azithromycin and Rocephin for the found concern of LLL PNA. Overall the pt notes she is feeling better today and is sitting at the bedside in no acute distress at this time. She is not requiring supplemental oxygen at this time. She currently rates her pain 7/10. She denies any CP, N/V/D and currently no acute dyspnea. She is scheduled for an ECHO today. Review of Systems Review of Systems: All systems reviewed & are unremarkable except as noted in HPI and below
[2023-06-07 12:55] LABS: Free T4 Free Thyroxine Reflex 1.84 ng/dL (0.78-2.19)
[2023-06-07 17:19] LABS: Glucose Point of Care 125 mg/dl (65-105)
[2023-06-07] MEDS: ONDANSETRON INJ 4 MG/2 ML VIAL IV PUSH (17:47)
[2023-06-07] MEDS: MONTELUKAST SODIUM 10 MG TABLET PO (20:16)
[2023-06-07 21:43] LABS: Glucose Point of Care 132 mg/dl (65-105)
[2023-06-08] VITALS (20 sets, daily range): BP systolic 141–147; BP diastolic 57; PULSE 62–97; RESP 16–20; TEMP 36.2; O2SAT 92–95
[2023-06-08] MEDS: ALBUTEROL SULFATE NEB 2.5 MG/3 ML INH INHALATION ×6 (00:14→20:24)
[2023-06-08 07:03] LABS: Basophils Absolute Auto 0.1 K/mm3 (0.0-0.1); Basophils Percent Auto 0.7 % (0.2-1.2); Eosinophils Absolute Auto 0.2 K/mm3 (0-0.3); Eosinophils Percent Auto 2.3 % (0-4.4); Hematocrit 36.6 % (37.0-47.0); Hemoglobin 11.4 g/dL (12.0-15.0); Immature Granulocyte Absolute 0.01 K/mm3 (0.00-0.031); Immature Granulocyte Percent A 0.1 % (0-0.5); Lymphocytes Absolute Auto 2.26 K/mm3 (0.9-3.2); Lymphocytes Percent Auto 30.1 % (18.3-44.2); Mean Corpuscular HGB Conc 31.1 g/dl (32-36); Mean Corpuscular Hemoglobin 29.5 pg (26-34); Mean Corpuscular Volume 94.8 fl (80-100); Mean Platelet Volume 10.9 fl (7.4-10.4); Monocytes Absolute Auto 0.8 K/mm3 (0.1-0.6); Monocytes Percent Auto 10.9 % (2.6-8.5); Neutrophils Absolute Auto 4.2 K/mm3 (1.3-6.7); Neutrophils Percent Auto 55.9 % (45.5-73.1); Platelet Count Result 310 k/mm3 (150-375); Red Blood Count 3.86 M/mm3 (4.2-5.4); Red Cell Distribution Width 14.3 % (11.5-14.5); White Blood Count 7.5 K/mm3 (4.5-10.0)
[2023-06-08 07:14] LABS: Anion Gap 7 mmol/L (8-16); Blood Urea Nitrogen 12 mg/dL (7-17); Calcium 8.2 mg/dL (8.4-10.2); Carbon Dioxide 28 mmol/L (22-30); Chloride 102 mmol/L (98-107); Estimated CRCL calculation 45 ml/min; Estimated Glomerular Filt Rate > 60; Glucose 125 mg/dL (65-110); Potassium 3.5 mmol/L (3.4-5.0); Sodium 137 mmol/L (137-145)
[2023-06-08] MEDS: BUDESONIDE RESPULE NEB 0.5 MG/2 ML AMP INHALATION ×2 (07:56→20:27)
[2023-06-08] MEDS: ENOXAPARIN 80 MG/0.8 ML SYRINGE SUB-Q ×2 (08:28→21:14)
[2023-06-08] MEDS: CLOPIDOGREL BISULFATE 75 MG TABLET PO (08:28)
[2023-06-08] MEDS: ASPIRIN 81 MG ENTERIC TABLET PO (08:28)
[2023-06-08] MEDS: rOPINIRole HCL 1 MG TABLET 2 MG PO ×2 (08:28→16:33)
[2023-06-08] MEDS: dilTIAZem HCL CD 120 MG CAP.24HR 240 MG PO (08:29)
[2023-06-08] MEDS: PANTOPRAZOLE 40 MG TABLET PO (08:29)
[2023-06-08] MEDS: ROSUVASTATIN 10 MG TABLET 20 MG PO (08:29)
--- NOTE | 2023-06-08 10:54 | P.PNIM_ITS ---
Progress Note: A&P Assessment and Plan (1) Lower abdominal pain: Code(s): R10.30 - Lower abdominal pain, unspecified Status: Acute Assessment and Plan: Abdominal pain is much better now. Plan is to continue current treatment monitor closely. (2) Atrial fibrillation with RVR: Code(s): I48.91 - Unspecified atrial fibrillation Status: Acute Assessment and Plan: * Rhythm converted with oral Diltiazem. Remains on maintenance * Continue Telemetry * ECHO today * Cardiology Consult, appreciate recommendations for follow up and management (3) Elevated d-dimer: Code(s): R79.89 - Other specified abnormal findings of blood chemistry Status: Acute Assessment and Plan: * Perfusion scan significant for a moderate risk of PE. * Lovenox changed to therapeutic dosing BID * Monitor for respiratory distress/changes * CTA PE protocol has been avoided given pt's hx of allergies to contrast and iodine. Patient is already taking Plavix. Will consult manager community relations and get his opinion with stanislaw Burnette (4) Pneumonia: Qualifiers: Laterality: left Lung location: lower lobe of lung Pneumonia type: due to unspecified organism Qualified Code(s): J18.9 - Pneumonia, unspecified organism Code(s): J18.9 - Pneumonia, unspecified organism Status: Acute Assessment and Plan: * Continue Rocephin. * Azithromycin held in the setting of new A-fib * Monitor labs and VS * Improving (5) Difficulty urinating: Code(s): R39.198 - Other difficulties with micturition Status: Resolved Assessment and Plan: Resolved (6) Asthma-COPD overlap syndrome: Code(s): J44.9 - Chronic obstructive pulmonary disease, unspecified Status: Chronic Assessment and Plan: * Continue Albuterol, Budesonide and Ipratropium. * Monitor oxygenation * Breathing is much better now, continue current treatment. (7) Type 2 diabetes mellitus with hyperglycemia: Qualifiers: Diabetes mellitus care home insulin use: without long term care phlebotomist use Qualified Code(s): E11.65 - Type 2 diabetes mellitus with hyperglycemia Code(s): E11.65 - Type 2 diabetes mellitus with hyperglycemia Status: Chronic Assessment and Plan: * Stable on current meds, continue current treatment * Hypoglycemic protocol * SSI Low dose Novolog Subjective Date/time seen: 06/08/23 10:54 Interval history: Patient was seen during the morning rounds today. Mild shortness of breath. No chest pain. No abdominal pain, nausea, vomiting. Mood stable. Review of Systems Review of Systems: All systems reviewed & are unremarkable except as noted in HPI and below Constitutional: Constitutional: Reports as per HPI Eyes: Eyes: Reports as per HPI ENT: Reports system reviewed and no additional complaints, except as documented Cardiovascular: Cardiovascular: Reports as per HPI Respiratory: Respiratory: Reports as per HPI Gastrointestinal: Gastrointestinal: Reports as per HPI Musculoskeletal: Musculoskeletal: Reports no additional musculoskeletal complaints Neurologic: Reports system reviewed and no additional complaints, except as documented and Reports as per HPI Psychiatric: Psychiatric: Reports no additional psychiatric complaints and Reports as per HPI Endocrine: Endocrine: Reports as per HPI Exam Const: General: cooperative and no acute distress Orientation/consci
--- NOTE | 2023-06-08 10:54 | PM.IMPN ---
Progress Note: A&P Assessment and Plan (1) Lower abdominal pain: Code(s): R10.30 - Lower abdominal pain, unspecified Status: Acute Assessment and Plan: Abdominal pain is much better now. Plan is to continue current treatment monitor closely. (2) Atrial fibrillation with RVR: Code(s): I48.91 - Unspecified atrial fibrillation Status: Acute Assessment and Plan: Rhythm converted with oral Diltiazem. Remains on maintenance Continue Telemetry ECHO today Cardiology Consult, appreciate recommendations for follow up and management (3) Elevated d-dimer: Code(s): R79.89 - Other specified abnormal findings of blood chemistry Status: Acute Assessment and Plan: Perfusion scan significant for a moderate risk of PE. Lovenox changed to therapeutic dosing BID Monitor for respiratory distress/changes CTA PE protocol has been avoided given pt's hx of allergies to contrast and iodine. Patient is already taking Plavix. Will consult delivery coordinator and get his opinion with stanislaw Burnette (4) Pneumonia: Qualifiers: Laterality: left Lung location: lower lobe of lung Pneumonia type: due to unspecified organism Qualified Code(s): J18.9 - Pneumonia, unspecified organism Code(s): J18.9 - Pneumonia, unspecified organism Status: Acute Assessment and Plan: Continue Rocephin. Azithromycin held in the setting of new A-fib Monitor labs and VS Improving (5) Difficulty urinating: Code(s): R39.198 - Other difficulties with micturition Status: Resolved Assessment and Plan: Resolved (6) Asthma-COPD overlap syndrome: Code(s): J44.9 - Chronic obstructive pulmonary disease, unspecified Status: Chronic Assessment and Plan: Continue Albuterol, Budesonide and Ipratropium. Monitor oxygenation Breathing is much better now, continue current treatment. (7) Type 2 diabetes mellitus with hyperglycemia: Qualifiers: Diabetes mellitus oysterman insulin use: without penitentiary use Qualified Code(s): E11.65 - Type 2 diabetes mellitus with hyperglycemia Code(s): E11.65 - Type 2 diabetes mellitus with hyperglycemia Status: Chronic Assessment and Plan: Stable on current meds, continue current treatment Hypoglycemic protocol SSI Low dose Novolog Subjective Date/time seen: 06/08/23 10:54 Interval history: Patient was seen during the morning rounds today. Mild shortness of breath. No chest pain. No abdominal pain, nausea, vomiting. Mood stable. Review of Systems Review of Systems: All systems reviewed & are unremarkable except as noted in HPI and below Constitutional: Constitutional: Reports as per HPI Eyes: Eyes: Reports as per HPI ENT: Reports system reviewed and no additional complaints, except as documented Cardiovascular: Cardiovascular: Reports as per HPI Respiratory: Respiratory: Reports as per HPI Gastrointestinal: Gastrointestinal: Reports as per HPI Musculoskeletal: Musculoskeletal: Reports no additional musculoskeletal complaints Neurologic: Reports system reviewed and no additional complaints, except as documented and Reports as per HPI Psychiatric: Psychiatric: Reports no additional psychiatric complaints and Reports as per HPI Endocrine: Endocrine: Reports as per HPI Exam Const: General: cooperative and no acute distress Orientation/consciousness: oriented to person, oriented to place, oriented to time and patient oriented x3 HENMT: Head: normal to inspection Ears: hearing grossly normal bilaterally and external ears normal Face/Nose/Sinus: Normal external nose present and normal facial exam Face and sinus: normal facial exam Mouth: Yes Normal oral and palatal mucosa present Eyes: General: appearance normal, both eyes and all related structures Sclera: sclerae normal Pupils: Equal, round and reactive pupils present EOM: EOMs intact bilaterally Neck:
[2023-06-08 16:51] LABS: Glucose Point of Care 97 mg/dl (65-105)
[2023-06-08 19:31] LABS: Glucose Point of Care 141 mg/dl (65-105)
[2023-06-08] MEDS: MONTELUKAST SODIUM 10 MG TABLET PO (21:14)
[2023-06-09] VITALS (11 sets, daily range): BP systolic 140; BP diastolic 59; PULSE 61–84; RESP 16–18; TEMP 36.3; O2SAT 93–94
[2023-06-09] MEDS: ALBUTEROL SULFATE NEB 2.5 MG/3 ML INH INHALATION ×4 (01:30→12:11)
[2023-06-09 06:59] LABS: Basophils Percent Auto 0.5 % (0.2-1.2); Eosinophils Absolute Auto 0.2 K/mm3 (0-0.3); Eosinophils Percent Auto 2.4 % (0-4.4); Hematocrit 38.5 % (37.0-47.0); Hemoglobin 12.5 g/dL (12.0-15.0); Immature Granulocyte Absolute 0.02 K/mm3 (0.00-0.031); Immature Granulocyte Percent A 0.3 % (0-0.5); Lymphocytes Absolute Auto 2.03 K/mm3 (0.9-3.2); Mean Corpuscular HGB Conc 32.5 g/dl (32-36); Mean Corpuscular Hemoglobin 30.6 pg (26-34); Mean Corpuscular Volume 94.1 fl (80-100); Monocytes Absolute Auto 0.7 K/mm3 (0.1-0.6); Monocytes Percent Auto 9.6 % (2.6-8.5); Neutrophils Absolute Auto 4.5 K/mm3 (1.3-6.7); Neutrophils Percent Auto 60.2 % (45.5-73.1); Platelet Count Result 367 k/mm3 (150-375); Red Blood Count 4.09 M/mm3 (4.2-5.4); White Blood Count 7.5 K/mm3 (4.5-10.0)
[2023-06-09 07:15] LABS: Alanine Aminotransferase 13 U/L (6-35); Albumin Level 3.7 g/dL (3.5-5.1); Alkaline Phosphatase 78 U/L (38-126); Anion Gap 6 mmol/L (8-16); Aspartate Amino Transferase 25 U/L (14-36); Bilirubin,Total 0.6 mg/dL (0.2-1.3); Blood Urea Nitrogen 12 mg/dL (7-17); Calcium 8.8 mg/dL (8.4-10.2); Carbon Dioxide 27 mmol/L (22-30); Chloride 102 mmol/L (98-107); Estimated CRCL calculation 41 ml/min; Estimated Glomerular Filt Rate 60; Glucose 120 mg/dL (65-110); Potassium 3.9 mmol/L (3.4-5.0); Sodium 135 mmol/L (137-145)
[2023-06-09 07:46] LABS: Glucose Point of Care 123 mg/dl (65-105)
[2023-06-09] MEDS: dilTIAZem HCL CD 120 MG CAP.24HR 240 MG PO (09:14)
[2023-06-09] MEDS: rOPINIRole HCL 1 MG TABLET 2 MG PO (09:14)
[2023-06-09] MEDS: PANTOPRAZOLE 40 MG TABLET PO (09:15)
[2023-06-09] MEDS: ENOXAPARIN 80 MG/0.8 ML SYRINGE SUB-Q (09:15)
[2023-06-09] MEDS: CLOPIDOGREL BISULFATE 75 MG TABLET PO (09:15)
[2023-06-09] MEDS: ROSUVASTATIN 10 MG TABLET 20 MG PO (09:15)
[2023-06-09] MEDS: ASPIRIN 81 MG ENTERIC TABLET PO (09:15)
[2023-06-09] MEDS: BUDESONIDE RESPULE NEB 0.5 MG/2 ML AMP INHALATION (09:20)
[2023-06-09 11:19] LABS: Glucose Point of Care 117 mg/dl (65-105)
--- NOTE | 2023-06-09 14:05 | PM.DS ---
DS: Admitting Diagnosis Discharge Date 06/09/2023 Admitting Diagnosis lower abdominal pain, atrial fibrillation with RVR, elevated D-dimer, difficulty urinating, nausea vomiting, as most COPD overlap syndrome, type 2 diabetes mellitus with hyperglycemia, essential primary hypertension DS: Summary Hospital Course Reason for hospitalization: Abdominal pain nausea, found to be AFib RVR with likelihood of PE Hospital Course: this is an 82-year-old female patient admitted to the hospital initially for abdominal pain that was subsequently thought to be a recently passed kidney stone. While being evaluated in the ER she was to have AFib with RVR. Patient was not aware she had AFib she was thinking this difficulty breathing was related to her asthma COPD. Cardiology placed patient on diltiazem and she was receiving Lovenox at treatment dosage for a V/Q scan with moderate likelihood of PE. Cardiology recommended transfer to go back. We discontinued clopidogrel and wrote prescription for Eliquis treatment PAC. Patient to follow-up with primary care and Cardiology as an outpatient. Her abdominal pain has been relieved. Telemetry monitoring was sinus rhythm with occasional PAC in the 70s prior to discharge. Patient reported that her difficulty breathing has essentially resolved but she has nebulizer treatments at home both scheduled and p.r.n. as well as p.r.n. ProAir. She has received 3 days of ceftriaxone and possibly 2 days of a Zithromax as though this is unclear. Prescription for Augmentin and doxycycline written upon discharge. Status at Discharge Cognitive/behavioral status at discharge: Awake alert oriented and very pleasant Functional status at discharge: uses cane/walker Overall status at discharge: patient is progressing back to baseline Time Spent with Patient Time attestation: Total time spent providing and/or coordinating discharge services: 40 minutes Time spent: Greater than 30 minutes Exam Const: General: cooperative and no acute distress Orientation/consciousness: oriented to person, oriented to place, oriented to time and patient oriented x3 HENMT: Head: normal to inspection Ears: hearing grossly normal bilaterally and external ears normal Face/Nose/Sinus: Normal external nose present and normal facial exam Face and sinus: normal facial exam Mouth: Yes Normal oral and palatal mucosa present Eyes: General: appearance normal, both eyes and all related structures Sclera: sclerae normal Pupils: Equal, round and reactive pupils present EOM: EOMs intact bilaterally Neck: Neck: normal visual inspection and full ROM Lymphatic: lymphadenopathy not noted Chest: Chest palpation & inspection: normal inspection of the chest and normal palpation of entire chest wall Resp: Effort & Inspection: normal respiratory effort Auscultation: clear to auscultation bilaterally Other: Air entry is better, faint inspiratory wheeze. no crackles, rales or rhonchi. Cardio: Jugular venous distension: no JVD Palpation: normal PMI Rate: regular rate Rhythm: regular rhythm Heart sounds: S1 normal heart sound present and S2 normal heart sound present Other: S1-S2 present without murmur, rub, ectopy GI: Inspection: normal to inspection GI Palp: No abdominal tenderness Auscultation: normal bowel sounds Other: Abdomen is soft and non tender now, much better then before Skin: General skin exam: normal color, no rashes or lesions noted and no erythema Wounds: no wounds Neuro: General: oriented to person, oriented to place, oriented to time and patient oriented x3 Cranial nerves: Yes CN's II-XII intact bilaterally Speech: normal speech Gait exam (Neuro): Normal gait present Motor exam (neuro): 5/5 motor strength present throughout Sensory Exam: normal sensation Other: A/Ox4 Extrem: General: normal to inspection, no edema and no pedal edema Other: Freely and equally MAEW Psych: Appearance: grossly normal
== END 2023-06-09 15:16 | disposition home or self-care (01) | DRG 193 ==
LOC: ANHED 12:26 → ANHIMU 12:59 → ANH3MEDSUR 14:19
PROVIDERS: Nurse Practitioner Adult Health; Student in an Organized Health Care Education/Training Program; Admitting Provider Student in an Organized Health Care Education/Training Program; Emergency Provider Physician Assistant; PCP Family Medicine; Visit Provider Nurse Practitioner
DX: J18.9 Pneumonia, unspecified organism (principal); I26.99 Other pulmonary embolism without acute cor pulmonale; J44.0 Chronic obstructive pulmonary disease with (acute) lower respiratory infection; E11.65 Type 2 diabetes mellitus with hyperglycemia; E78.5 Hyperlipidemia, unspecified; G25.81 Restless legs syndrome; G89.4 Chronic pain syndrome; I35.0 Nonrheumatic aortic (valve) stenosis; I48.91 Unspecified atrial fibrillation; I10 Essential (primary) hypertension; K21.9 Gastro-esophageal reflux disease without esophagitis; M15.9 Polyosteoarthritis, unspecified; M06.9 Rheumatoid arthritis, unspecified; N20.0 Calculus of kidney; R79.89 Other specified abnormal findings of blood chemistry; Z20.822 Contact with and (suspected) exposure to COVID-19; Z79.82 Long term (current) use of aspirin; Z79.02 Long term (current) use of antithrombotics/antiplatelets; Z90.49 Acquired absence of other specified parts of digestive tract
CPT/HCPCS: 36415; 71046; 74176; 78582; 80048; 80053; 81001; 82948; 83036; 83690; 83735; 83880; 84100; 84439; 84443; 84480; 84484; 85025; 85380; 87040; 87086; 87088; 87636; 93005; 93306; 93970; 94640; 96365; 96367; 96375; 96376; 99285; A9270; A9540; A9558; G0378; J0456; J0696; J1650; J2270; J2405; J3010

== ENCOUNTER 2023-07-03 09:18 | Outpatient (CLI) | payer MEDICARE, MEDICAID, SELFPAY ==
--- NOTE | ~2023-07-03 | MR_ITS ---
MRI of the lumbar spine Clinical History: Radiculopathy Technique: Axial T2-weighted images, and sagittal T1-weighted, T2-weighted, and STIR images were acqu ired. COMPARISON: 02/20/2019 Findings: There is posterior fusion from L3 through L5, bilateral rods and transpedicular screws pres ent. There is fusion across the L3-L4 and L4-L5 disc spaces. There is posterior decompression at L4 a nd L5. No suspicious bone marrow signal abnormality seen. At L1-L2, there is mild degenerative disc narrowing. There is minimal disc bulge and mild facet arthr opathy. No central canal stenosis. There is moderate left neural foraminal narrowing. Right neural fo ramen preserved. At L2-L3, there is severe degenerative disc narrowing. There is disc bulge and facet arthropathy. No central canal stenosis. There is moderate to advanced bilateral neural foraminal narrowing. At L3-L4, there is no disc bulge or herniation. No central canal stenosis or definite neural foramina l narrowing. At L4-L5, there is no disc bulge or herniation. No central canal stenosis or definite neural foramina l narrowing. At L5-S1, there is advanced degenerative disc narrowing. No significant disc bulge or herniation. No central canal stenosis or definite neural foraminal narrowing. Paravertebral soft tissues are otherwise unremarkable. Impression: Posterior fusion changes from L3 through L5, as detailed above. Moderate degenerative spondylosis at L2-L3, as detailed above. Reviewed, dictated and finalized at [facility]. ALL SANDER Impression: Posterior fusion changes from L3 through L5, as detailed above. Moderate degenerative spondylosis at L2-L3, as detailed above.
== END 2023-07-03 09:19 ==
LOC: MICIMG 09:20
PROVIDERS: PCP Nurse Practitioner Family; Visit Provider Nurse Practitioner Family
DX: M43.06 Spondylolysis, lumbar region (principal); M43.26 Fusion of spine, lumbar region
CPT/HCPCS: 72148

== ENCOUNTER 2023-09-27 12:45 | Outpatient (CLI) | payer MEDICARE, SELFPAY ==
--- NOTE | ~2023-09-27 | XR_ITS ---
XR chest 2V DATE: 09/27/2023 13:30 INDICATION: Productive cough, shortness of breath. Asthma. TECHNIQUE: 2 views COMPARISON: 05/3123 2 view chest radiographic examination is not available from PACS at this time FINDINGS: There is patchy prominent infiltrate in the lingula and left lower lobe. The lungs are oth erwise clear of infiltrate or consolidation. No pulmonary vascular congestion or pleural effusion or pneumothorax. Normal heart size. There is aortic calcification. No hilar or mediastinal enlargement. There is osteopenia. Degenerative changes of the thoracic and lumbar spine. Posterior surgical fusion of the lumbar spine. Status post cholecystectomy. IMPRESSION: Lingular and left lower lobe infiltrate Reviewed, dictated and finalized at location B.
[2023-09-27 14:09] LABS: Influenza A QL RT-PCR Negative (Negative); Influenza B QL RT-PCR Negative (Negative); RSV RNA, RT-PCR Negative (Negative); SARS-CoV-2 RNA PCR Negative (Negative)
== END 2023-09-27 12:46 | disposition home or self-care (01) ==
PROVIDERS: PCP Nurse Practitioner; Visit Provider Nurse Practitioner Family
DX: R05.9 Cough, unspecified (principal); R50.9 Fever, unspecified; R06.00 Dyspnea, unspecified; Z20.822 Contact with and (suspected) exposure to COVID-19
CPT/HCPCS: 71046; 87637

== ENCOUNTER 2024-01-09 09:41 | Outpatient (CLI) | payer MEDICARE, SELFPAY ==
--- NOTE | ~2024-01-09 | XR_ITS ---
XR chest 2V 01/09/2024 09:56 Indication: Elevated d-dimer. Shortness of breath. Procedure: 2 view chest Comparison: Comparison to multiple prior studies sequentially, with oldest reviewed study dated 01/2020. Findings: Heart size normal. No focal air space disease, pulmonary edema, pleural effusion or suspect ed pneumothorax. There is diffuse idiopathic skeletal hyperostosis (DISH) of the thoracic spine. Impression: 1: No acute cardiopulmonary disease. Reviewed, dictated and finalized at location B. Impression: 1: No acute cardiopulmonary disease.
== END 2024-01-09 09:42 ==
PROVIDERS: PCP Physician Assistant; Visit Provider Physician Assistant
DX: J18.9 Pneumonia, unspecified organism (principal)
CPT/HCPCS: 71046

== ENCOUNTER 2024-10-13 08:11 | Outpatient (CLI) | payer MEDICARE, SELFPAY ==
--- NOTE | ~2024-10-13 | NM_ITS ---
EXAMINATION: NM melodie stress w perfusion DATE: 10/13/2024 10:25 INDICATION: Chest pain TECHNIQUE: Rest images were obtained following intravenous administration of 11.2 mCi Tc99m tetrofosm in (Myoview). The patient was infused intravenously with Lexiscan (Regadenoson). Then, 34.7 mCi Tc99m tetrofosmin (Myoview) was administered intravenously, and stress images were obtained. Data was shelley nstructed into short axis and horizontal and vertical long axis SPECT images. Gated SPECT images were also obtained. COMPARISON: None. FINDINGS: There is no definite reversible or fixed perfusion abnormality to suggest ischemia or infar ction. There is normal left ventricular chamber size, wall motion and ejection fraction. Left ventr icular ejection fraction measures >70%. IMPRESSION: 1. Normal myocardial perfusion at rest and during stress. 2. Left ventricular ejection fraction measuring >70%. Reviewed, dictated and finalized at location A.
--- OUTSIDE RECORDS SUMMARY | 2024-10-13 08:34 | XMS_ITS | Clinical Summary ---
Author Organization [facility] Address [address] [place] [address] Care Team Providers Care Cadd Drafter Name Role Phone Bobby Jones MD Primary Care Provider [phone] Allergies Active Allergy Reactions Criticality Noted Date Comments Donovan Inhibitors Swelling 11/13/2022 Per pt Iodine Syncope 11/07/2022 Lisinopril Other (see comment) 11/07/2022 Tongue swelling Medications montelukast (SINGULAIR) 10 MG tablet Take 1 tablet (10 mg total) by mouth nightly at bedtime. Active rOPINIRole (REQUIP) 2 MG tablet Take 1 tablet (2 mg total) by mouth 2 (two) times a day. Active dilTIAZem CD (CARDIZEM CD) 120 MG 24 hr capsule Take 1 capsule (120 mg total) by mouth daily. Active rosuvastatin (CRESTOR) 20 MG tablet Take 1 tablet (20 mg total) by mouth nightly at bedtime. Active pantoprazole EC (PROTONIX) 40 MG tablet Take 1 tablet (40 mg total) by mouth daily. Active HYDROcodone-donovan taminophen (NORCO) 5-325 MG tablet Take 1 tablet by mouth 2 (two) times a day. 10/12/2022 Active Albuterol Sulfate (PROAIR HFA IN) Inhale 2 puffs into the lungs 4 (four) times daily. Active Active Problems No known active problems Social History Tobacco Use Types Packs/Day Years Used Date Smoking Tobacco: Never Smokeless Tobacco: Never Tobacco Cessation:Counseling Given: Not Answered Alcohol Use Standard Drinks/Week Comments Never 0 (1 standard drink = 0.6 oz pur e alcohol) Comments No Sex and Gender Information Value Date Recorded Sex Assigned at Not on file Legal Sex Female 2:28 PM CDT Gender Identity Not on file Sexual Orientation Not on file Last Filed Vital Signs Vital Sign Reading Time Taken Comments Blood Pressure 175/73 01/15/2023 10:05 AM CDT Pulse 64 01/15/2023 10:05 AM CDT Temperature 36.9 C (98.4 F) 01/15/2023 8:34 AM CDT Respiratory Rate 16 01/15/2023 8:34 AM CDT Oxygen Saturation 96% 01/15/2023 10:05 AM CDT Inhaled Oxygen Concentration - - Weight 79.4 kg (175 lb) 01/03/2023 2:51 PM CDT Height 157.5 cm (5' 2 ) 01/03/2023 2:51 PM CDT Body Mass Index 32.01 01/03/2023 2:51 PM CDT Plan of Treatment Health Maintenance Due Date Last Done Comments DTaP, Tdap and Td Vaccines (1 - Tdap) 10/03/1958 Pneumococcal Vaccine: 50+ Years (1 of 1 - PCV) 10/03/1989 Zoster Vaccines (1 of 2) 10/03/1989 Annual Medicare Wellness Visit 10/03/2004 Dexa Scan (General) 10/03/2004 RSV Immunization or 60+ Years (1 - 1-dose 75+ series) 10/03/2014 COVID-19 Vaccine ( season) 2024 04/17/2022, 03/28/2021, 09/09/2020, Additional history exists Meningococcal B Vaccine Aged Out No l onger eligible based on patient's age to complete this topic Meningococcal Vaccine Aged Out No yuniel rossana eligible based on patient's age to complete this topic RSV Immunizations Under 20 Months Aged Out No longer eligible based on patient's age to complete this topic Medical Devices Implanted Type Area Tile Setter Device Identifier Shelf Expiration Date Model / Serial / Lot 1 Piece Iol With Tecnis Simplicity Delivery System Implanted:Qty: 1 on 11/13/2022 by Guicho Jones MD at [facility] Right: Eye 02/11/2024 / [id number] / [employer]ecnis 1 Piece Iol Implanted:Qty: 1 on 01/15/2023 by Guicho Jones MD at [facility] Left: Eye 08/28/2025 / [id number] / Insurance MEDICARE [facility] Care Teams Cadd Drafter Relationship Specialty Start Date End Date Bobby Jones MD [address] [place] [id number] PCP - General FAMILY PRACTICE 01/15/23
--- NOTE | 2024-10-13 08:45 | EST_ITS ---
Patient Info Name: Nguyen Lunsford Age: 84 years : 1940 Gender: Female Ht: 60 in Wt: 150 lbs BSA: 1.72 m2 Exam Date: 10/13/2024 9:33 AM Exam Location: Echo Lab Patient Status: Outpatient Admit Date: 10/13/2024 Staff Ordering Physician: Ever Shipley DO Attending Provider: Ever Shipley DO Exercise Technologist: Vaishali Qiu RDCS Exercise Physician: Ever Shipley DO Exam Type: CA stress melodie w NM Study Info A regadenoson stress test was performed. Summary 1. 1. Negative lexiscan stress test for ischemic ST changes by ECG criteria. 2. 2. Baseline hypertension. 3. 3. Nuclear scan to follow and will be reported separately. Please correlate with it. 4. 4. Patient informed of the above results. Protocol: Lexiscan Stress ECG Details Stage: REST Duration (min): 1 min : 55 sec HR (bpm): 72 SBP (mmHg): 174 DBP (mmHg): 83 Stage: REST Duration (min): 5 min : 16 sec HR (bpm): 75 SBP (mmHg): 174 DBP (mmHg): 83 Stage: STAGE 1 Duration (min): 1 min : 0 sec HR (bpm): 88 SBP (mmHg): 174 DBP (mmHg): 83 Stage: RECOVERY Duration (min): 1 min : 0 sec HR (bpm): 90 SBP (mmHg): 185 DBP (mmHg): 76 Stage: RECOVERY Duration (min): 2 min : 0 sec HR (bpm): 88 SBP (mmHg): 182 DBP (mmHg): 75 Stage: RECOVERY Duration (min): 3 min : 0 sec HR (bpm): 86 SBP (mmHg): 183 DBP (mmHg): 74 Stage: RECOVERY Duration (min): 3 min : 5 sec HR (bpm): 86 SBP (mmHg): 183 DBP (mmHg): 74 Rest HR: 75 bpm Peak HR: 90 bpm Rest Sys BP: 174 mmHg Peak Sys BP: 185 mmHg Max Pred HR: 135 bpm % Max Pred HR: 67 % Target HR: 115 bpm Max RPP: 16,650 bpm*mmHg Termination Reason: Completed protocol Cardiac Symptoms: Shortness of breath Total Time: 1 min : 0 sec Rest Lamb BP: 83 mmHg Peak Lamb BP: 76 mmHg Total Dose: 0.4 mg Resting ECG Sinus rhythm. Stress ECG No ST changes. Arrhythmias None. Report Signatures
== END 2024-10-13 08:12 | disposition home or self-care (01) ==
PROVIDERS: PCP Nurse Practitioner; Visit Provider Internal Medicine Cardiovascular Disease
DX: R07.9 Chest pain, unspecified (principal)
CPT/HCPCS: 78452; 93017; A9502; J2785

== ENCOUNTER 2024-10-23 08:17 | Outpatient (CLI) | payer MEDICARE, SELFPAY ==
--- NOTE | ~2024-10-23 | XR_ITS ---
Clinical Indication: Cough PA and lateral views of the chest: Comparison: 01/09/2024 Findings: Probable left basilar atelectasis versus possibly pneumonia. Right lung clear. Cardiomedia stinal silhouette is within normal limits. Bones and soft tissues are unremarkable. Impression: Left basilar atelectasis versus pneumonia. Correlate clinically. Reviewed, dictated and finalized at [facility]. Impression: Left basilar atelectasis versus pneumonia. Correlate clinically.
== END 2024-10-23 08:18 | disposition home or self-care (01) ==
LOC: MICIMG 08:17
PROVIDERS: PCP Nurse Practitioner; Visit Provider Nurse Practitioner
DX: R05.9 Cough, unspecified (principal); R91.8 Other nonspecific abnormal finding of lung field
CPT/HCPCS: 71046

== ENCOUNTER 2025-05-07 10:37 | Outpatient (CLI) | payer MEDICARE, SELFPAY ==
--- NOTE | ~2025-05-07 | XR_ITS ---
EXAMINATION: XR chest 2V, 05/07/2025 10:48 FULFILLMENT COORDINATOR HISTORY: R06.02 - Shortness of breath COMPARISON: No comparisons available. Technique: 2 views obtained. Findings: The lungs are clear, no effusion. No pneumothorax. Heart is normal size. Mediastinal and hilar contours are within normal limits. Bony thorax no acute abnormality. Impression: No acute cardiopulmonary abnormality. Reviewed, dictated and finalized at location P. ILLMENT COORDINATOR Impression: No acute cardiopulmonary abnormality.
== END 2025-05-07 10:38 | disposition home or self-care (01) ==
LOC: MICIMG 10:39
PROVIDERS: PCP Nurse Practitioner; Visit Provider Nurse Practitioner
DX: R06.02 Shortness of breath (principal)
CPT/HCPCS: 71046